=== PATIENT | female | born 1990 | race Caucasian/White ===

== ENCOUNTER 2019-03-04 18:43 | Emergency (ER) | payer BC ==
[~2019-03-04] VITALS: Ht 154.9 cm; Wt 61.7 kg
[2019-03-04] MEDS ORDERED: YAZ 28 TABLET1 EACH PO (19:07)
== END 2019-03-04 22:55 | disposition home or self-care (01) ==
LOC: ER 18:43
DX: M79.605 Pain in left leg (principal)